=== PATIENT | male | born 1995 | race Caucasian/White ===

== ENCOUNTER 2018-11-29 14:38 | Inpatient (IN) | payer MEDICAID ==
[~2018-11-29] VITALS: Ht 167.6 cm; Wt 50.6 kg
[~2018-11-29 14:38] MED LIST: BENZ-51 PO; CIP250 PO; DIVA125T32 PO
[2018-11-29] MEDS ORDERED: SODIUM CHLORIDE 0.9% 1,000 ML IV ONE ×4 (15:04→20:00)
[2018-11-29] MEDS ORDERED: IBUPROFEN 100 MG/5 ML SUSPENSION UDCUP PEG ONE (15:15)
[2018-11-29] MEDS ORDERED: ACETAMINOPHEN 160 MG/5 ML SUSPENSION UDCUP PEG ONE (15:15)
[2018-11-29] MEDS ORDERED: IBUPROFEN 400 MG TABLET PO ONE (15:30)
[2018-11-29] MEDS ORDERED: ACETAMINOPHEN 325 MG TABLET PO ONE (15:30)
[2018-11-29 15:51] LABS: BASOPHILS % (AUTO) 0.2 % (0.0-2.0); EOSINOPHILS % (AUTO) 0.2 % (1.0-6.0); HEMOGLOBIN 16.6 g/dL (13.5-17.5); LYMPHOCYTES # (AUTO) 1.8 K/uL (1.0-4.8); LYMPHOCYTES % (AUTO) 12.4 % (22.0-44.0); MEAN CORPUSCULAR HEMOGLOBIN 30.8 pg (26.0-34.0); MEAN CORPUSCULAR HGB CONC 33.9 G/dL (31.0-37.0); MEAN CORPUSCULAR VOLUME 91 fL (80-100); MONOCYTES # (AUTO) 1.2 K/uL (0.1-1.0); MONOCYTES % (AUTO) 8.3 % (2.0-9.0); NEUTROPHILS # (AUTO) 11.4 K/uL (1.8-7.7); NEUTROPHILS % (AUTO) 78.9 % (40.0-70.0); PLATELET COUNT (AUTO) 140 K/uL (150-450); RED BLOOD CELL COUNT(AUTO) 5.38 MIL/uL (4.50-5.90); RED CELL DISTRIBUTION WIDTH 12.9 % (11.5-14.5)
[2018-11-29 15:57] LABS: PROTHROMBIN TIME 10.6 SEC (9.4-11.6)
[2018-11-29 16:08] LABS: APPEARANCE,URINE CLEAR (CLEAR); BILIRUBIN,URINE NEGATIVE (NEGATIVE); GLUCOSE, URINE (UA) NEGATIVE (NEGATIVE); KETONES,URINE TRACE mg/dL (NEGATIVE); LEUKOCYTE ESTERASE ,URINE NEGATIVE (NEGATIVE); NITRATE,URINE NEGATIVE (NEGATIVE); OCCULT BLOOD,URINE NEGATIVE (NEGATIVE); PROTEIN,URINE TRACE (NEGATIVE)
[2018-11-29 16:10] LABS: LACTIC ACID 1.8 mmol/L (0.4-2.0)
[2018-11-29 16:29] LABS: ANION GAP 12 mmol/L (8-16); CALCIUM, TOTAL 9.6 mg/dL (8.8-10.5); CARBON DIOXIDE 25 mmol/L (22-29); CHLORIDE 101 mmol/L (98-107); CREATININE 0.81 mg/dL (0.60-1.30); GLOMERULAR FILTR. RATE CALC > 60 mL/min (>60); GLUCOSE,RANDOM 126 mg/dL (70-110); POTASSIUM 3.3 mmol/L (3.5-5.1); SODIUM SERUM 138 mmol/L (136-145); UREA NITROGEN, BLOOD 11 mg/dL (7-18)
[2018-11-29 16:44] LABS: INFLUENZA TYPE A NEGATIVE FOR TYPE A (NEGATIVE); INFLUENZA TYPE B NEGATIVE FOR TYPE B (NEGATIVE)
[2018-11-29 16:55] LABS: ALANINE AMINOTRANSFERASE 19 U/L (12-78); ALBUMIN 3.9 g/dL (3.4-5.0); ALKALINE PHOSPHATASE 73 U/L (46-116); ASPARTATE AMINOTRANSFERASE 19 U/L (15-37); BILIRUBIN,TOTAL 0.5 mg/dL (0.1-1.0); CREATINE KINASE, TOTAL ONLY 128 U/L (39-308); VALPROIC ACID 94 mcg/mL (50-100)
[2018-11-29] MEDS ORDERED: SODIUM CHLORIDE 0.9% 100 ML ONE (16:59)
[2018-11-29] MEDS ORDERED: IOVERSOL 320 MG/ML 100 ML VIAL ONE (16:59)
[2018-11-29] MEDS ORDERED: CefTRIAXone 1 GM/DEXTROSE 50 ML IV ONE (20:00)
[2018-11-29] MEDS ORDERED: ACETAMINOPHEN 325 MG TABLET PO PRN (20:00)
[2018-11-29] MEDS ORDERED: AZITHROMYCIN 500 MG/NS 250 ML IV ONE (20:00)
[2018-11-29] MEDS ORDERED: MAGNESIUM HYDROXIDE SUSPENSION 30 ML UDCUP PO PRN (20:00)
[2018-11-29] MEDS ORDERED: POTASSIUM CHLORIDE 20 MEQ ER TABLET PO PRN (20:00)
[2018-11-29] MEDS: POTASSIUM CHL 10 MEQ/WATER 50 ML IV PRN (21:55)
[2018-11-29] MEDS: DOCUSATE SODIUM 100 MG CAPSULE PO SCH (21:55)
[2018-11-29] MEDS: HEPARIN SODIUM,PORCINE 5,000 UNITS/ML VIAL SQ SCH (21:55)
[2018-11-29 21:58] VITALS: BP 113/79
[2018-11-29 23:21] VITALS: BP 126/82
[2018-11-30] MEDS: POTASSIUM CHL 10 MEQ/WATER 50 ML IV PRN ×2 (00:27→03:28)
[2018-11-30 05:34] VITALS: BP 107/69
[2018-11-30 07:07] VITALS: BP 112/72
[2018-11-30 07:40] LABS: BASOPHILS % (AUTO) 0.3 % (0.0-2.0); EOSINOPHILS % (AUTO) 1.3 % (1.0-6.0); HEMATOCRIT 44.2 % (41-53); HEMOGLOBIN 15.1 g/dL (13.5-17.5); LYMPHOCYTES # (AUTO) 1.6 K/uL (1.0-4.8); LYMPHOCYTES % (AUTO) 14.5 % (22.0-44.0); MEAN CORPUSCULAR HGB CONC 34.2 G/dL (31.0-37.0); MEAN CORPUSCULAR VOLUME 91 fL (80-100); MONOCYTES # (AUTO) 0.9 K/uL (0.1-1.0); MONOCYTES % (AUTO) 7.9 % (2.0-9.0); NEUTROPHILS # (AUTO) 8.3 K/uL (1.8-7.7); PLATELET COUNT (AUTO) 133 K/uL (150-450); RED BLOOD CELL COUNT(AUTO) 4.87 MIL/uL (4.50-5.90); RED CELL DISTRIBUTION WIDTH 13.1 % (11.5-14.5)
[2018-11-30 07:59] LABS: ANION GAP 10 mmol/L (8-16); CALCIUM, TOTAL 8.7 mg/dL (8.8-10.5); CARBON DIOXIDE 24 mmol/L (22-29); CHLORIDE 105 mmol/L (98-107); CREATININE 0.64 mg/dL (0.60-1.30); GLOMERULAR FILTR. RATE CALC > 60 mL/min (>60); GLUCOSE,RANDOM 86 mg/dL (70-110); POTASSIUM 3.7 mmol/L (3.5-5.1); SODIUM SERUM 139 mmol/L (136-145); UREA NITROGEN, BLOOD 5 mg/dL (7-18)
[2018-11-30] MEDS: DOCUSATE SODIUM 100 MG CAPSULE PO SCH ×2 (08:40→21:00)
[2018-11-30] MEDS: FAMOTIDINE 20 MG TABLET PO SCH (08:40)
[2018-11-30] MEDS: HEPARIN SODIUM,PORCINE 5,000 UNITS/ML VIAL SQ SCH ×2 (08:40→21:12)
[2018-11-30 12:34] VITALS: BP 117/71
[2018-11-30 16:26] VITALS: BP 101/63
[2018-11-30 19:43] VITALS: BP 114/64
[2018-11-30] MEDS ORDERED: CefTRIAXone 1 GM/DEXTROSE 50 ML IV SCH (20:00)
[2018-11-30] MEDS ORDERED: AZITHROMYCIN 500 MG/NS 250 ML IV SCH (20:00)
[2018-11-30] MEDS: DIVALPROEX SODIUM 125 MG DR TABLET PO SCH (22:31)
[2018-11-30 23:09] VITALS: BP 108/69
[2018-12-01] MEDS: HEPARIN SODIUM,PORCINE 5,000 UNITS/ML VIAL SQ SCH (08:27)
[2018-12-01] MEDS: DOCUSATE SODIUM 100 MG CAPSULE PO SCH (08:27)
[2018-12-01] MEDS: FAMOTIDINE 20 MG TABLET PO SCH (08:27)
[2018-12-01] MEDS: DIVALPROEX SODIUM 125 MG DR TABLET PO SCH (08:27)
[2018-12-01 10:51] VITALS: BP 104/57
[2018-12-01] MEDS ORDERED: LEVOFLOXACIN PO (12:39)
== END 2018-12-01 13:00 | disposition home or self-care (01) | DRG 720 ==
LOC: EMS 14:39 → 5S 20:00 → 5N 12-01 11:00
PROVIDERS: ADMIT Internal Medicine; ATTEND Internal Medicine
DX: A41.9 Sepsis, unspecified organism (principal); E43 Unspecified severe protein-calorie malnutrition; J18.9 Pneumonia, unspecified organism; G80.9 Cerebral palsy, unspecified; Z68.1 Body mass index [BMI] 19.9 or less, adult; Z79.899 Other long term (current) drug therapy
CPT/HCPCS: 51702; 71275; 83036; 83605; 87040; 87430; 87804; 96365; 99291; G0378; J0456; J0696; J1644; J3480; J7030; J7050

== ENCOUNTER 2024-06-05 17:10 | Inpatient (IN) | payer MEDICAID, OTHER ==
[~2024-06-05] VITALS: Ht 172.7 cm; Wt 58.6 kg
[~2024-06-05 17:10] MED LIST changes: -BENZ-51 PO; -CIP250 PO; +LEVOFLOXACIN PO
[2024-06-05] MEDS ORDERED: 0.9% SODIUM CHLORIDE 10 ML SYRINGE IVP PRN (18:00)
[2024-06-05] MEDS: SODIUM CHLORIDE 0.9% 1,900 ML IV ONE (18:20)
[2024-06-05] MEDS: CefTRIAXone 1 GM/DEXTROSE 50 ML IV ONE (18:30)
[2024-06-05 18:39] LABS: BASOPHILS % (AUTO) 0.2 % (0.0-2.0); EOSINOPHILS % (AUTO) 0.1 % (1.0-6.0); HEMOGLOBIN 15.1 g/dL (13.5-17.5); LYMPHOCYTES # (AUTO) 0.4 K/uL (1.0-4.8); LYMPHOCYTES % (AUTO) 6.8 % (22.0-44.0); MEAN CORPUSCULAR HEMOGLOBIN 31.5 pg (26.0-34.0); MEAN CORPUSCULAR HGB CONC 34.4 G/dL (31.0-37.0); MEAN CORPUSCULAR VOLUME 92 fL (80-100); MONOCYTES # (AUTO) 0.4 K/uL (0.1-1.0); MONOCYTES % (AUTO) 6.9 % (2.0-9.0); NEUTROPHILS # (AUTO) 5.5 K/uL (1.8-7.7); PLATELET COUNT (AUTO) 83 K/uL (150-450); RED BLOOD CELL COUNT(AUTO) 4.79 MIL/uL (4.50-5.90); RED CELL DISTRIBUTION WIDTH 13.1 % (11.5-14.5); WHITE BLOOD COUNT (AUTO) 6.3 K/uL (4.5-11.0)
[2024-06-05 18:42] LABS: COVID AG,FIA SOURCE NASAL SWAB
[2024-06-05 18:50] LABS: ANION GAP 8 mmol/L (8-16); CALCIUM, TOTAL 8.7 mg/dL (8.8-10.5); CARBON DIOXIDE 27 mmol/L (22-29); CHLORIDE 97 mmol/L (98-107); GLOMERULAR FILTR. RATE CALC > 60 mL/min (>60); GLUCOSE,RANDOM 131 mg/dL (70-110); POTASSIUM 3.6 mmol/L (3.5-5.1); SODIUM SERUM 132 mmol/L (136-145); UREA NITROGEN, BLOOD 10 mg/dL (7-18)
[2024-06-05 18:58] LABS: LACTIC ACID 1.5 mmol/L (0.4-2.0)
[2024-06-05 19:06] LABS: APPEARANCE,URINE CLEAR (CLEAR); BILIRUBIN,URINE NEGATIVE (NEGATIVE); COLOR,URINE LIGHT YELLOW (YELLOW); GLUCOSE, URINE (UA) NEGATIVE (NEGATIVE); KETONES,URINE TRACE mg/dL (NEGATIVE); LEUKOCYTE ESTERASE ,URINE NEGATIVE (NEGATIVE); NITRATE,URINE NEGATIVE (NEGATIVE); OCCULT BLOOD,URINE NEGATIVE (NEGATIVE); PROTEIN,URINE NEGATIVE (NEGATIVE); SPECIFIC GRAVITIY, URINE 1.025 (1.003-1.030)
[2024-06-05 19:06] LABS: INFLUENZA TYPE A NEGATIVE FOR TYPE A (NEGATIVE); INFLUENZA TYPE B NEGATIVE FOR TYPE B (NEGATIVE); SARS-COV2 (COVID) ANTIGEN,FIA Negative (Negative)
[2024-06-05] MEDS: ACETAMINOPHEN 1000 MG/ISO-OSM 100 ML IV ONE (19:42)
[2024-06-05] MEDS ORDERED: SODIUM CHLORIDE 0.9% 1,000 ML IV ONE (19:45)
[2024-06-05] MEDS ORDERED: IPRATROPIUM BROMIDE 0.5 MG/2.5 ML NEB SOLUTION NEB PRN (20:00)
[2024-06-05] MEDS ORDERED: ACETAMINOPHEN 325 MG TABLET PO PRN (20:00)
[2024-06-05] MEDS ORDERED: ONDANSETRON HCL 4 MG/2 ML VIAL IVP PRN (20:00)
[2024-06-05] MEDS ORDERED: ALBUTEROL SULFATE 2.5 MG/0.5 ML NEB SOLUTION NEB PRN (20:00)
[2024-06-05] MEDS: AZITHROMYCIN 500 MG/NS 250 ML IV ONE (20:06)
[2024-06-05] MEDS ORDERED: MIRT-89 PO (20:32)
[2024-06-05] MEDS ORDERED: RISP-31 PO (20:32)
[2024-06-05 20:33] LABS: BILIRUBIN,TOTAL 0.3 mg/dL (0.1-1.0)
[2024-06-05] MEDS: DOCUSATE SODIUM 100 MG CAPSULE PO SCH (20:43)
[2024-06-05] MEDS ORDERED: IOHEXOL 350 MG/ML 100 ML VIAL ONE (21:04)
[2024-06-05] MEDS ORDERED: SODIUM CHLORIDE 0.9% 100 ML ONE (21:04)
[2024-06-05] MEDS ORDERED: 0.9% SODIUM CHLORIDE 10 ML SYRINGE IVP ONE (21:04)
[2024-06-05 21:15] VITALS: BP 107/71; PULSE 113; RESP 19; TEMP 102.4; O2SAT 97
[2024-06-05] MEDS: RINGERS SOLUTION,LACTATED 500 ML IV ONE (21:34)
[2024-06-05] MEDS: RINGERS SOLUTION,LACTATED 1,000 ML IV ONE (22:44)
[2024-06-05] MEDS: DIVALPROEX SODIUM 125 MG DR TABLET PO SCH (23:08)
[2024-06-05] MEDS: MIRTAZAPINE 15 MG TABLET PO SCH (23:09)
[2024-06-05] MEDS: RisperiDONE 1 MG TABLET PO SCH (23:09)
[2024-06-05] MEDS: PIPERACILLIN/TAZO 3.375 GM/D5W 50 ML IV SCH (23:17)
[2024-06-06 00:18] VITALS: BP 114/68; PULSE 80; RESP 19; TEMP 99.2; O2SAT 95
[2024-06-06] MEDS ORDERED: SODIUM CHLORIDE 0.9% 100 ML ONE (01:52)
[2024-06-06] MEDS ORDERED: IOHEXOL 350 MG/ML 100 ML VIAL ONE (01:53)
[2024-06-06 05:40] VITALS: BP 111/64; PULSE 100; RESP 19; TEMP 98.7; O2SAT 95
[2024-06-06 07:16] LABS: ALANINE AMINOTRANSFERASE 31 U/L (12-78); ALBUMIN 2.7 g/dL (3.4-5.0); ALKALINE PHOSPHATASE 78 U/L (46-116); ANION GAP 9 mmol/L (8-16); ASPARTATE AMINOTRANSFERASE 35 U/L (15-37); BILIRUBIN,TOTAL 0.3 mg/dL (0.1-1.0); CALCIUM, TOTAL 8.5 mg/dL (8.8-10.5); CARBON DIOXIDE 24 mmol/L (22-29); CHLORIDE 102 mmol/L (98-107); CREATININE 0.78 mg/dL (0.60-1.30); GLOMERULAR FILTR. RATE CALC > 60 mL/min (>60); GLUCOSE,RANDOM 96 mg/dL (70-110); POTASSIUM 3.7 mmol/L (3.5-5.1); SODIUM SERUM 135 mmol/L (136-145); UREA NITROGEN, BLOOD 7 mg/dL (7-18)
[2024-06-06 07:18] LABS: HEMATOCRIT 38.9 % (41-53); HEMOGLOBIN 13.5 g/dL (13.5-17.5); MEAN CORPUSCULAR HEMOGLOBIN 31.9 pg (26.0-34.0); MEAN CORPUSCULAR HGB CONC 34.6 G/dL (31.0-37.0); MEAN CORPUSCULAR VOLUME 92 fL (80-100); PLATELET COUNT (AUTO) 77 K/uL (150-450); RED BLOOD CELL COUNT(AUTO) 4.22 MIL/uL (4.50-5.90); RED CELL DISTRIBUTION WIDTH 12.8 % (11.5-14.5); WHITE BLOOD COUNT (AUTO) 8.5 K/uL (4.5-11.0)
[2024-06-06 07:49] VITALS: BP 113/66; PULSE 115; RESP 18; TEMP 98.2; O2SAT 96
[2024-06-06 09:40] LABS: BAND NEUTROPHILS % (MANUAL) 0 % (0-5)
[2024-06-06 09:45] LABS: EOSINOPHILS % (MANUAL) 1 % (1-6); LYMPHOCYTES % (MANUAL) 27 % (22-44); MONOCYTES % (MANUAL) 15 % (2-9); SEGMENTED NEUTROPHILS % 57 % (40-70); TOTAL CELLS COUNTED 100
[2024-06-06 09:46] LABS: RBC MORPHOLOGY COMMENT NORMAL RBC MORPH
[2024-06-06 12:14] VITALS: BP 126/94; PULSE 119; RESP 19; TEMP 98.2; O2SAT 92
[2024-06-06] MEDS: LORazepam 2 MG/ML VIAL IVP ONE (14:03)
[2024-06-06] MEDS: SODIUM CHLORIDE 0.9% 1,000 ML IV ONE (14:06)
[2024-06-06 15:43] VITALS: BP 152/90; PULSE 57; RESP 18; TEMP 98.8; O2SAT 87
[2024-06-06 20:02] VITALS: BP 105/54; PULSE 106; RESP 18; TEMP 98.7; O2SAT 95
[2024-06-06] MEDS: RisperiDONE 1 MG TABLET PO SCH (20:24)
[2024-06-07] VITALS (8 sets, daily range): BP systolic 95–155; BP diastolic 60–99; PULSE 81–113; RESP 18–20; TEMP 97.6–98.6; O2SAT 91–100
[2024-06-07] MEDS: HEPARIN SODIUM,PORCINE 5,000 UNITS/ML VIAL SQ SCH
[2024-06-07] MEDS ORDERED: SODIUM CHLORIDE 0.9% 500 ML IV ONE (18:19)
[2024-06-08 05:30] VITALS: BP 107/65; PULSE 92; RESP 20; TEMP 97.7
[2024-06-08 07:42] VITALS: BP 100/65; PULSE 98; RESP 20; TEMP 97.6
[2024-06-08] MEDS ORDERED: AMOX-457 PO (09:34)
== END 2024-06-08 13:45 | disposition home or self-care (01) | DRG 720 ==
LOC: EMS 17:10 → EDH 20:11 → 5N 20:55 → 4E 06-07 18:20
PROVIDERS: ADMIT Internal Medicine; ATTEND Internal Medicine
DX: A41.9 Sepsis, unspecified organism (principal); J69.0 Pneumonitis due to inhalation of food and vomit; G93.41 Metabolic encephalopathy; D69.6 Thrombocytopenia, unspecified; J18.9 Pneumonia, unspecified organism; E22.2 Syndrome of inappropriate secretion of antidiuretic hormone; E83.51 Hypocalcemia; Z20.822 Contact with and (suspected) exposure to COVID-19; G80.9 Cerebral palsy, unspecified; Z60.3 Acculturation difficulty; Z78.1 Physical restraint status
CPT/HCPCS: 71045; 71260; 72193; 74160; 80048; 80076; 81003; 82247; 82248; 83605; 83735; 84145; 85025; 87040; 87804; 93005; 99285; G0378; J0131; J0456; J0696; J1644; J2060; J2543; J7030; J7040; J7050; J7120; 36415-L1; 36415-TC